=== PATIENT | female | born 1980 | race Caucasian/White ===

== ENCOUNTER → 2024-02-04 08:56 | Outpatient (REF) | payer BC, SELFPAY | LOC: WDC 08:56 | PROVIDERS: ATTENDING PHYSICIAN Obstetrics & Gynecology; FAMILY PHYSICIAN Family Medicine | DX: N64.4 Mastodynia (principal); Z12.31 Encounter for screening mammogram for malignant neoplasm of breast | CPT/HCPCS: 76642; 77062; 77066 ==

== ENCOUNTER → 2024-06-20 07:04 | Outpatient (REF) | payer BC, SELFPAY | LOC: HWRAD 07:04 | PROVIDERS: ATTENDING PHYSICIAN Nurse Practitioner Family | DX: R74.8 Abnormal levels of other serum enzymes (principal) | CPT/HCPCS: 76700 ==

== ENCOUNTER → 2025-04-14 14:35 | Outpatient (REF) | payer BC, SELFPAY | LOC: WDC 14:35 | PROVIDERS: ATTENDING PHYSICIAN Obstetrics & Gynecology; FAMILY PHYSICIAN Nurse Practitioner Family | DX: Z12.31 Encounter for screening mammogram for malignant neoplasm of breast (principal); R92.333 Mammographic heterogeneous density, bilateral breasts | CPT/HCPCS: 77063; 77067 ==

== ENCOUNTER → 2025-04-23 07:13 | Outpatient (REF) | payer BC, SELFPAY | LOC: HWRCS 07:13 | PROVIDERS: FAMILY PHYSICIAN Nurse Practitioner Family | DX: R42 Dizziness and giddiness (principal); R01.1 Cardiac murmur, unspecified | CPT/HCPCS: 93306 ==

== ENCOUNTER → 2025-08-10 07:51 | Outpatient (REF) | payer BC, SELFPAY | LOC: WDC 07:51 | PROVIDERS: ATTENDING PHYSICIAN Obstetrics & Gynecology | DX: R92.333 Mammographic heterogeneous density, bilateral breasts (principal) | CPT/HCPCS: 76641 ==